=== PATIENT | male | born 1970 | race Caucasian/White ===

== ENCOUNTER 2021-08-21 21:32 | Emergency (ER) | payer OTHER ==
[~2021-08-21] VITALS: Ht 185.4 cm; Wt 110.2 kg
[2021-08-21] MEDS ORDERED: ZOFRAN4 MG PO (22:00)
[2021-08-21] MEDS ORDERED: ZITHROMAX250 MG PO (22:00)
== END 2021-08-21 22:09 | disposition home or self-care (01) ==
LOC: ED 21:32
DX: R11.2 Nausea with vomiting, unspecified (principal); H66.92 Otitis media, unspecified, left ear; Z88.8 Allergy status to other drugs, medicaments and biological substances

== ENCOUNTER 2023-04-02 17:06 | Emergency (ER) | payer OTHER ==
[~2023-04-02] VITALS: Ht 185.4 cm; Wt 89.8 kg
[~2023-04-02 17:06] MED LIST: ZITHROMAX250 MG PO; ZOFRAN4 MG PO
[2023-04-02] MEDS ORDERED: HUMALOG100 UNIT/1 SQ (18:32)
[2023-04-02] MEDS ORDERED: NAPROXEN250 MG PO (20:12)
== END 2023-04-02 20:17 | disposition home or self-care (01) ==
LOC: ED 17:06
DX: S93.401A Sprain of unspecified ligament of right ankle, initial encounter (principal); Z88.8 Allergy status to other drugs, medicaments and biological substances; W17.89XA Other fall from one level to another, initial encounter; Y93.89 Activity, other specified; Y92.89 Other specified places as the place of occurrence of the external cause; Y99.0 Civilian activity done for income or pay

== ENCOUNTER 2023-07-10 09:48 | Emergency (ER) | payer OTHER ==
[~2023-07-10] VITALS: Wt 89.8 kg
[~2023-07-10 09:48] MED LIST changes: +HUMALOG100 UNIT/1 SQ; +NAPROXEN250 MG PO
[2023-07-10 10:36] LABS: BASO # 0.1 10*3/uL (0.0-0.1); BASO % 0.5 % (0.0-1.0); EOS # 0.2 10*3/uL (0.0-0.4); EOS % 1.2 % (1.0-4.0); LYMPH # 2.1 10*3/uL (1.3-4.4); LYMPH % 15.7 % (27.0-41.0); MEAN CELL VOLUME 89.2 fl (80.0-94.0); MEAN CORPUSCULAR HGB 29.5 pg (27.0-31.0); MEAN CORPUSCULAR HGB CONC 33.1 g/dl (33.0-37.0); MEAN PLATELET VOLUME 10.1 fl (9.6-12.3); MONO % 7.3 % (3.0-9.0); NEUT # 10.2 10*3/uL (2.3-7.9); NEUT % 74.9 % (47.0-73.0); PLATELET COUNT AUTOMATED 294 10*3/uL (130-400); RED BLOOD COUNT 5.83 10*6/uL (4.50-5.90); RED CELL DISTRI WIDTH 14.1 % (0-14.5); WHITE BLOOD COUNT 13.6 10*3/uL (4.8-10.8)
[2023-07-10 10:53] LABS: ALKALINE PHOSPHATASE 100 U/L (46-116); BUN 20 mg/dl (9-23); CHLORIDE 109 mmol/L (98-107); LIPASE 27 U/L (12-53); POTASSIUM 4.1 mmol/L (3.4-5.1); SGPT/ALT 9 U/L (5-49); TOTAL PROTEIN 7.2 gm/dL (6.0-8.0)
[2023-07-10 10:55] LABS: ETHYL ALCOHOL < 3.0 mg/dl (<3)
[2023-07-10 11:29] LABS: BILIRUBIN Negative (Negative); BLOOD Negative (Negative); CLARITY Clear (Clear); COLOR Yellow (Yellow); GLUCOSE 3+ (Negative); KETONE Trace (Negative); LEUKO ESTERASE Negative (Negative); NITRITE Negative (Negative); SPECIFIC GRAVITY >= 1.030 (1.001-1.030); UROBILINOGEN 0.2 E.U./dl (0.0-1.0)
[2023-07-10 11:45] LABS: MUCOUS TRACE; RBC 0-2 rbc/hpf (0-2)
== END 2023-07-10 14:33 | disposition home or self-care (01) ==
LOC: ED 09:48
PROVIDERS: Family Medicine
DX: R10.9 Unspecified abdominal pain (principal); R11.2 Nausea with vomiting, unspecified; Z20.822 Contact with and (suspected) exposure to COVID-19; R19.7 Diarrhea, unspecified; Z88.8 Allergy status to other drugs, medicaments and biological substances

== ENCOUNTER 2023-07-17 12:27 | Emergency (ER) | payer OTHER ==
[~2023-07-17] VITALS: Ht 185.4 cm; Wt 89.8 kg
[2023-07-17 13:48] LABS: BASO # 0.1 10*3/uL (0.0-0.1); BASO % 0.5 % (0.0-1.0); EOS # 0.4 10*3/uL (0.0-0.4); EOS % 3.7 % (1.0-4.0); HEMATOCRIT 46.3 % (42.0-52.0); LYMPH # 2.7 10*3/uL (1.3-4.4); LYMPH % 24.8 % (27.0-41.0); MEAN CELL VOLUME 89.2 fl (80.0-94.0); MEAN CORPUSCULAR HGB 29.7 pg (27.0-31.0); MEAN CORPUSCULAR HGB CONC 33.3 g/dl (33.0-37.0); MEAN PLATELET VOLUME 9.8 fl (9.6-12.3); MONO % 8.7 % (3.0-9.0); NEUT # 6.8 10*3/uL (2.3-7.9); NEUT % 61.8 % (47.0-73.0); PLATELET COUNT AUTOMATED 264 10*3/uL (130-400); RED BLOOD COUNT 5.19 10*6/uL (4.50-5.90); RED CELL DISTRI WIDTH 13.8 % (0-14.5)
[2023-07-17 14:14] LABS: ALKALINE PHOSPHATASE 93 U/L (46-116); BUN 15 mg/dl (9-23); CHLORIDE 103 mmol/L (98-107); POTASSIUM 3.8 mmol/L (3.4-5.1); SGPT/ALT 8 U/L (5-49); TOTAL PROTEIN 6.7 gm/dL (6.0-8.0)
[2023-07-17] MEDS ORDERED: TYLENOL325 M1 PO (15:10)
[2023-07-17] MEDS ORDERED: VIBRAMYCIN100 MG PO (15:10)
== END 2023-07-17 15:05 | disposition left against medical advice (07) ==
LOC: ED 12:27
PROVIDERS: Nurse Practitioner
DX: K04.7 Periapical abscess without sinus (principal); Z88.8 Allergy status to other drugs, medicaments and biological substances